=== PATIENT | female | born 1945 | race Caucasian/White ===

== ENCOUNTER 2017-04-09 06:24 | Day surgery (SDC) | payer OTHER, MEDICARE ==
[~2017-04-09] VITALS: Ht 162.6 cm; Wt 93.0 kg
--- NOTE | ~2017-04-09 | O ---
[facility] [place] [address] OPERATIVE REPORT Name: CHELSEA CLIFTON Room #: DEP [facility]#: [id number] Admission: 04/09/17 Attend Phys: Varinder Lawrence MD Discharge: 04/09/17 Date of : 47 Report #: [id number] THIS REPORT FOR: //name// CC: Chloe Lawrence DATE OF SERVICE: 04/09/2017 DATE OF SERVICE: 04/09/2017 SURGEON: Varinder Lawrence MD ARMORED CAR MESSENGER: None. PREOPERATIVE DIAGNOSIS: Bilateral upper lid dermatochalasia with superior visual field defect. POSTOPERATIVE DIAGNOSIS: Bilateral upper lid dermatochalasia with superior visual field defect. OPERATION PERFORMED: Bilateral upper lid functional blepharoplasty. ANESTHESIA: Local with IV sedation. COMPLICATIONS: None. INDICATIONS FOR SURGERY: This patient has acquired upper lid dermatochalasia with superior visual field loss both eyes because of excessive upper lid tissues to include skin and fat. Visual field testing demonstrates dense superior visual defects. Retesting with the upper lid elevated shows an improvement in visual field loss of over 30% and in excess of 12 degrees. The current procedures are undertaken in order to improve the patient's visual function. Informed consent was obtained to include but not limited to the loss of vision, bleeding, infection, scarring, failure to improve the problem and need for further surgery. DESCRIPTION OF OPERATION: The patient was taken to the operating room, where 2% Xylocaine with epinephrine mixed with equal parts of 0.75% Marcaine with Wydase was administered transcutaneously to each upper lid. The patient was then prepped and draped in the usual sterile fashion and a skin-marking pen was then utilized to outline an upper lid crease that was symmetrical on each side. Graefe forceps were then used to quantitate the redundant upper lid skin and it was similarly outlined. The incisions were then made with Cora scissors and a skin-muscle flap removed from each side with high-temp cautery. [address] [address] OPERATIVE REPORT Name: ETIENNECHELSEA J [id number] Admission: 04/09/17 Attend Phys: Varinder Lawrence MD Discharge: 04/09/17 Date of : 47 Report #: [id number] was achieved with the monopolar cautery as it was throughout the case. The orbital septum was then identified and the central and medial fat pads were inspected. The redundant soft tissue was then sculpted with the monopolar cautery. The upper lid crease was then reformed with tightening of the pretarsal orbicularis muscle. The upper lid crease was then further reformed with multiple interrupted 6-0 chromic sutures. The skin was then closed with a running 6-0 plain gut suture. The wound was then cleaned and dressed with ophthalmic antibiotic ointment and a nonstick dressing. The patient was transported to the recovery area, where cold compresses were applied, having tolerated the procedure well with no anesthetic or operative complications being noted. CC: Dr. Sheppard ____, in [place]. <ELECTRONICALLY SIGNED> By: Varinder Lawrence MD 04/13/17 0620 [id number] Varinder Lawrence MD /nt
[~2017-04-09 06:24] MED LIST: ASPIR 8181 M1 PO; BIOTIN5000 MCG PO; FLAX OIL1000 MG PO; FOSAMAX 70 MG T70 MG PO; SYNTHROID137 MCG PO; TRIPLE FLEX CA1 EACH PO; VITAMIN D32000 UNI1 PO; VITAMIN E400 UNIT PO; ZOCOR 10 MG TAB10 MG PO
[2017-04-09 11:45] VITALS: BP 143/69
== END 2017-04-09 15:30 | disposition home or self-care (01) ==
LOC: TBA 06:24 → OR 06:24 → TBA 06:28 → OR 10:15
DX: H02.834 Dermatochalasis of left upper eyelid (principal); H02.831 Dermatochalasis of right upper eyelid; H53.462 Homonymous bilateral field defects, left side; H53.461 Homonymous bilateral field defects, right side; E78.00 Pure hypercholesterolemia, unspecified; M19.90 Unspecified osteoarthritis, unspecified site; M85.80 Other specified disorders of bone density and structure, unspecified site; Z96.641 Presence of right artificial hip joint; Z90.710 Acquired absence of both cervix and uterus; Z98.890 Other specified postprocedural states; Z86.19 Personal history of other infectious and parasitic diseases; Z85.3 Personal history of malignant neoplasm of breast; Z79.82 Long term (current) use of aspirin; Z79.899 Other long term (current) drug therapy
CPT/HCPCS: 50010; 50101; 50386; 50398; 51636; 56531; 62110; 62850; 70005